=== PATIENT | female | born 1995 | race Caucasian/White ===

== ENCOUNTER 2021-05-19 12:23 | Inpatient (IN) ==
[2021-05-19] MEDS ORDERED: FAMOTIDINE 20 MG/2 ML VIAL IV ONE (13:15)
[2021-05-19] MEDS ORDERED: CITRIC ACID/SODIUM CITRATE 30 ML UDCUP PO ONE (13:15)
[2021-05-19] MEDS ORDERED: OXYTOCIN/LR 20 UNIT/1,000 ML BAG IV ONE ×2 (13:15→17:00)
[2021-05-19] MEDS ORDERED: CARBOPROST TROMETHAMINE 250 MCG/ML AMP IM PRN (13:15)
[2021-05-19] MEDS ORDERED: miSOPROStoL 200 MCG TABLET RECTAL PRN (13:15)
[2021-05-19] MEDS ORDERED: METHYLERGONOVINE 0.2 MG/1 ML AMP IM PRN (13:15)
[2021-05-19] MEDS ORDERED: TRANEXAMIC ACID 1,000 MG in SODIUM CHLORIDE 0.9% 100 ML IV PRN (13:15)
[2021-05-19] MEDS ORDERED: ceFAZolin 2,000 MG/50 ML DUPLEX IV ONE (13:15)
[2021-05-19] MEDS ORDERED: LACTATED RINGERS 1,000 ML IV SCH ×2 (13:30→17:00)
[2021-05-19 13:49] LABS: Basophils # 0.1 10*3/uL (0.0-0.2); Basophils % 0.5 % (0.0-0.8); Eosinophils # 0.1 10*3/uL (0.0-0.87); Eosinophils % 0.5 % (0.00-10.9); Hematocrit 40.5 VOL% (35.7-47.0); Hemoglobin 13.5 GM/DL (12.0-16.0); Immature Granulocytes % 1.1 %; Immature Granulocytes Absolute 0.18 #; Lymphocytes # 2.8 10*3/uL (1.4-4.0); Lymphocytes % 17.3 % (21.3-54.2); Mean Corpuscular HGB Conc 33.3 GM/DL (32-36); Mean Corpuscular Volume 85.4 FL (87-102); Mean Platelet Volume 10.9 FL (9.6-12.0); Monocytes % 5.1 % (1.7-12.7); Neutrophils % 75.5 % (38.7-73.9); Platelet Count 265 T/CUMM (130-400); Red Blood Count 4.74 MC/CUMM (3.8-5.5); Red Cell Distribution Width 14.2 % (9.3-17.3); White Blood Count 16.1 T/CUMM (4-12)
[2021-05-19] MEDS ORDERED: BUPIVACAINE SPINAL 0.75% 2 ML AMP SPINAL ONE (14:02)
[2021-05-19] MEDS ORDERED: METOCLOPRAMIDE 10 MG/2 ML VIAL ONE (14:02)
[2021-05-19] MEDS ORDERED: ONDANSETRON 4 MG/2 ML VIAL ONE (14:02)
[2021-05-19 14:19] LABS: Alanine Aminotransferase 20 U/L (13-56); Albumin 2.4 G/DL (3.4-5.0); Alkaline Phosphatase 197 U/L (45-117); Aspartate Amino Transferase 19 U/L (0-37); Bilirubin,Direct < 0.100 MG/DL (0.0-0.20); Bilirubin,Total < 0.39 MG/DL (0.20-1.00); Blood Urea Nitrogen 4 MG/DL (7-18); Carbon Dioxide 19 MMOL/L (21-32); Estimated Glom Filtration Rate 159 ML/MIN; Glucose 68 MG/DL (74-106); Osmolality,Calculated 271.5 MOS/KG (273-304); Potassium 3.5 MMOL/L (3.5-5.1); Sodium 139 MMOL/L (136-145); Uric Acid 5.3 MG/DL (2.6-6.0)
[2021-05-19 14:25] LABS: INR 0.9; PT Patient Result 10.3 SECS (10.5-12.0); Partial Thromboplastin Time 28.5 SECS (23.8-32.1)
[2021-05-19 14:30] LABS: HIV Antigen/Antibody Result Nonreactive (Nonreactive)
[2021-05-19] MEDS ORDERED: SODIUM CHLORIDE 0.9% 0 ML IV ONE (14:30)
[2021-05-19] MEDS ORDERED: miSOPROStoL 200 MCG TABLET ONE (14:30)
[2021-05-19] MEDS ORDERED: TRANEXAMIC ACID 1,000 MG/10 ML VIAL ONE (14:30)
[2021-05-19] MEDS ORDERED: CARBOPROST TROMETHAMINE 250 MCG/ML AMP IM ONE (14:31)
[2021-05-19] MEDS ORDERED: METHYLERGONOVINE 0.2 MG/1 ML AMP ONE (14:31)
[2021-05-19] MEDS ORDERED: OXYTOCIN 10 UNIT/ML VIAL ONE (14:32)
[2021-05-19] MEDS ORDERED: OXYTOCIN 30 UNIT in LACTATED RINGERS 1,000 ML IV ONE (14:33)
[2021-05-19] MEDS ORDERED: KETOROLAC 30 MG/1 ML VIAL ONE (15:01)
[2021-05-19] MEDS ORDERED: OXYTOCIN 10 UNIT/ML VIAL IM ONE (15:03)
[2021-05-19] MEDS ORDERED: MIDAZOLAM 2 MG/2 ML VIAL ONE (15:14)
[2021-05-19] MEDS ORDERED: LACTATED RINGERS 1,000 ML IV ONE (15:15)
[2021-05-19 15:20] LABS: Cord Arterial Blood HCO3 20.5 MMOL/L
[2021-05-19 15:24] LABS: Cord Venous Blood HCO3 21.5 MMOL/L; Cord Venous Blood PCO2 45.9 MMHG; Cord Venous Blood PO2 21.9
[2021-05-19 15:26] LABS: Cord Arterial Blood HCO3 25.7 MMOL/L
[2021-05-19 15:30] LABS: Cord Venous Blood HCO3 23.8 MMOL/L; Cord Venous Blood PCO2 45.1 MMHG; Cord Venous Blood PO2 < 19.0 MMHG
[2021-05-19] MEDS ORDERED: ACETAMINOPHEN 500 MG TABLET PO PRN (15:52)
[2021-05-19] MEDS ORDERED: OXYTOCIN/LR 30 UNIT/1,000 ML BAG IV ONE (16:00)
[2021-05-19 16:20] LABS: Urine Appearance Clear (Clear); Urine Color Yellow (Yellow); Urine Specific Gravity 1.015 (1.001-1.035)
[2021-05-19 16:21] LABS: Bilirubin,Urine Negative (Negative); Blood, Urine Negative (Negative); Glucose,Urine (UA) Negative (Negative); Ketones,Urine 80 mg/dL (Negative); Nitrite,Urine Negative (Negative); Protein,Urine Trace mg/dL (Negative); Urine Urobilinogen 0.2 eU/dL (<2.0)
[2021-05-19 16:24] LABS: Bacteria,Urine Occasional /HPF (Few); Mucus,Urine Occasional /LPF (Occasional); RBC,Urine 1 /HPF (0-4); Squamous Epithelial Cell,Urine Occasional /HPF (0-10)
[2021-05-19] MEDS ORDERED: ACETAMINOPHEN 325 MG TABLET PO PRN (16:26)
[2021-05-19] MEDS ORDERED: ONDANSETRON 4 MG/2 ML VIAL IV PRN (16:26)
[2021-05-19] MEDS ORDERED: IBUPROFEN 800 MG TABLET PO PRN (16:26)
[2021-05-19] MEDS ORDERED: RHO(D) IMMUNE GLOBULIN 300 MCG SYRINGE IM ONE (16:26)
[2021-05-19 16:55] LABS: Protein/Creatinine Ratio,Urine 0.4 RATIO
[2021-05-19] MEDS: FUROSEMIDE 100 MG/10 ML VIAL IV SCH ×2 (17:56→22:51)
[2021-05-19] MEDS ORDERED: KETOROLAC 30 MG/1 ML VIAL IV SCH (21:00)
[2021-05-19 22:27] LABS: Basophils # 0.1 10*3/uL (0.0-0.2); Basophils % 0.4 % (0.0-0.8); Eosinophils # 0.1 10*3/uL (0.0-0.87); Eosinophils % 0.5 % (0.00-10.9); Hematocrit 37.2 VOL% (35.7-47.0); Hemoglobin 12.6 GM/DL (12.0-16.0); Immature Granulocytes % 0.5 %; Immature Granulocytes Absolute 0.09 #; Lymphocytes # 3.3 10*3/uL (1.4-4.0); Lymphocytes % 19.4 % (21.3-54.2); Mean Corpuscular HGB Conc 33.9 GM/DL (32-36); Mean Corpuscular Volume 85.1 FL (87-102); Mean Platelet Volume 11.4 FL (9.6-12.0); Monocytes % 8.2 % (1.7-12.7); Platelet Count 216 T/CUMM (130-400); Red Blood Count 4.37 MC/CUMM (3.8-5.5); Red Cell Distribution Width 14.2 % (9.3-17.3); White Blood Count 17.3 T/CUMM (4-12)
[2021-05-19] MEDS: DOCUSATE SODIUM 100 MG CAPSULE PO SCH (22:50)
[2021-05-20] MEDS: KETOROLAC 30 MG/1 ML VIAL IV SCH ×2 (03:00→09:27)
[2021-05-20 05:16] LABS: Basophils # 0.1 10*3/uL (0.0-0.2); Basophils % 0.4 % (0.0-0.8); Eosinophils # 0.1 10*3/uL (0.0-0.87); Eosinophils % 0.7 % (0.00-10.9); Hematocrit 39.1 VOL% (35.7-47.0); Immature Granulocytes % 0.7 %; Immature Granulocytes Absolute 0.09 #; Lymphocytes # 3.1 10*3/uL (1.4-4.0); Lymphocytes % 23.1 % (21.3-54.2); Mean Corpuscular HGB Conc 33.2 GM/DL (32-36); Mean Corpuscular Volume 85.2 FL (87-102); Monocytes % 8.1 % (1.7-12.7); Platelet Count 204 T/CUMM (130-400); Red Blood Count 4.59 MC/CUMM (3.8-5.5); Red Cell Distribution Width 14.2 % (9.3-17.3); White Blood Count 13.5 T/CUMM (4-12)
[2021-05-20] MEDS: FUROSEMIDE 40 MG/4 ML VIAL IV SCH ×3 (05:51→12:36)
[2021-05-20] MEDS: ACETAMINOPHEN 500 MG TABLET PO SCH ×3 (06:00→12:35)
[2021-05-20] MEDS: MULTIVITAMIN (PRENATAL) TABLET PO SCH (09:26)
[2021-05-20] MEDS: DOCUSATE SODIUM 100 MG CAPSULE PO SCH ×2 (09:26→20:15)
[2021-05-20] MEDS: METOCLOPRAMIDE 10 MG TABLET PO SCH ×2 (09:26→17:45)
[2021-05-20] MEDS: MAGNESIUM HYDROXIDE SUSP 30 ML UDCUP PO PRN (14:40)
[2021-05-20] MEDS: SIMETHICONE CHEW 80 MG TABLET PO PRN (14:40)
[2021-05-21] MEDS: METOCLOPRAMIDE 10 MG TABLET PO SCH (04:17)
[2021-05-21] MEDS: SIMETHICONE CHEW 80 MG TABLET PO PRN (08:51)
[2021-05-21] MEDS: DOCUSATE SODIUM 100 MG CAPSULE PO SCH ×2 (08:51→21:34)
[2021-05-21] MEDS: MULTIVITAMIN (PRENATAL) TABLET PO SCH (08:51)
[2021-05-21] MEDS: MAGNESIUM HYDROXIDE SUSP 30 ML UDCUP PO PRN (08:51)
[2021-05-22] MEDS: SIMETHICONE CHEW 80 MG TABLET PO PRN (08:42)
[2021-05-22] MEDS: DOCUSATE SODIUM 100 MG CAPSULE PO SCH (08:42)
[2021-05-22] MEDS: MULTIVITAMIN (PRENATAL) TABLET PO SCH (08:42)
[2021-05-22 09:59] VITALS: BP 136/95
[2021-05-22] MEDS ORDERED: DIPH/TET/ACEL PERT BOOSTER VACCINE 0.5 ML VIAL IM ONE (11:22)
== END 2021-05-22 13:45 | disposition home or self-care (01) | DRG 788 ==
LOC: N.LD 12:23 → N.OB 22:40
PROVIDERS: ADMIT Obstetrics & Gynecology; ATTEND Obstetrics & Gynecology
PROC: LDCSECT (ICD-10-PCS; 2021-05-19 15:00)